=== PATIENT | female | born 1950 | race Caucasian/White ===

== ENCOUNTER 2017-11-16 20:25 | Emergency (ER) | payer MEDICARE, BC ==
--- NOTE | 2017-11-16 20:49 | EDM.PDOC ---
ED HPI GENERAL MEDICAL PROBLEM - General Chief Complaint: Respiratory Problem Stated Complaint: Coughing, fever, SOB Time Seen by Provider: 11/16/17 20:40 Source of Information: Reports: Patient, Family (Daughter). Denies: Old Records (No [facility] records available) History Limitations: Reports: No Limitations - History of Present Illness INITIAL COMMENTS - FREE TEXT/NARRATIVE: The patient was brought to the emergency room via private automobile by her daughter for evaluation of a 2 day history of progressive mostly clear nasal drainage and nonproductive cough with possible very occasional wheezing with symptoms worsening since yesterday evening. She did receive an influenza booster this past season and has had a Pneumovax. She denies any known exposure to infection. History of fever and chills with last Tylenol dose of 1000 mg at 14:30 hours this afternoon. She did have a temperature of 101.5 immediately prior to arrival. He does have some mild pleuritic type symptoms with coughing. The patient denies any other chest pain/pressure, heart flutter, dizziness, orthostasis, orthopnea, diaphoresis, paresthesias, recent decreased exercise tolerance, or any other anginal-type symptoms. No recent history of abdominal pain, heartburn, nausea, diarrhea, melena, gross hematochezia, or any food intolerance, including fatty foods, etc.. Onset: Gradual Onset Date: 11/14/17 Duration: Getting Worse Location: Reports: Chest (Pleurisy). Denies: Head, Face, Neck, Abdomen, Back, Upper Extremity, Left, Upper Extremity, Right, Radiates to Quality: Reports: Sharp Severity: Moderate Improves with: Reports: Rest Worsens with: Reports: Movement (Coughing) Context: Reports: Other (As above) Associated Symptoms: Reports: Chest Pain, Cough, Fever/Chills. Denies: Confusion, cough w sputum, Diaphoresis, Headaches, Loss of Appetite, Malaise, Nausea/Vomiting, Shortness of Breath, Syncope, Weakness Treatments FIELD TECHNICAL SUPPORT CONSULTANT: Reports: Acetaminophen Bilateral Thoracic Pain Score (Numeric/FACES): 6 - Related Data Allergies Allergy/AdvReac Type Severity Reaction Status Date / Time No Known Allergies Allergy Verified 11/16/17 20:32 Home Meds: Home Meds Venlafaxine HCl [Venlafaxine ER] 75 mg PO DAILY 11/16/17 [History] guaiFENesin/Dextromethorphan [Mucinex Dm ER 600-30 mg Tablet] 1 each PO BID #20 tab.er.12h 11/16/17 [Rx] traZODone HCl [Trazodone HCl] 50 mg PO BEDTIME 11/16/17 [History] Past Medical History HEENT History: Reports: Impaired Vision, Other (See Below). Denies: Allergic Rhinitis, Cataract, Glaucoma, Hard of Hearing, Macular Degeneration, Retinal Detachment Other HEENT History: Patient wears glasses Cardiovascular History: Reports: High Cholesterol. Denies: Afib, Aneurysm, Arrhythmia, Blood Clots/VTE/DVT, CAD, Heart Failure, Heart Murmur, Hypertension , [place], Syncope Respiratory History: Reports: Bronchitis, Recurrent, Intubation, Previous, Pneumonia, Recurrent. Denies: Asthma, COPD, Intubation, Difficult, PE, Pneumothorax, Sleep Apnea Gastrointestinal History: Reports: Chronic Constipation, Colon Polyp, GERD, Irritable Bowel Syndrome, Other (See Below). Denies: Celiac Disease, Cholelithiasis, Chronic Diarrhea, Diverticulosis, Fecal Incontinence, GI Bleed, Hepatitis, Inflammatory Bowel Disease, Jaundice, Pancreatitis, PUD Other Gastrointestinal History: Achalasia. History of unknown type of gastric polyps Genitourinary History: Reports: None. Denies: Acute Renal Failure, Chronic Renal Insuffiency, Renal Calculus, STD, Urinary Incontinence, UTI, Recurrent [employer] History: Reports: Dysfunctional Uterine Bleeding, Fibroids, . Denies: Endometriosis, Polycystic Ovaries : 5 Para: 5 LMP (Approximate): Other (See Below) Other OB/BYN History: Deliveries by C-sections secondary to narrow pelvis with no history of other complications during pregnancies or deliveries. Surgical Menopause at age 46 Musculoskeletal History: Reports: Arthritis, Fracture, Osteoarthritis, Osteoporosis, Other (See Below). Denies: Amputation, Back Pain, Chronic, Gout, Neck Pain, Chronic, RA, SLE Other Musculoskeletal History: Right Elbow fracture in about 2007. Fifth metatarsal fracture of the right foot in the Neurological History: Reports: Headaches, Chronic, Migraines, Other (See Below) . Denies: Cerebral Aneurysms, Concussion, CVA, Head Trauma, MS, Neuropathy, Peripheral, Parkinson's, Seizure, TIA Other Neuro History: Migraines currently nonproblematic Psychiatric History: Reports: Anxiety, Depression. Denies: Abuse, Victim of, ADD, ADHD, Addiction, Psych Hospitalization(s), PTSD, Suicide Attempt, Suicidal Ideation Endocrine/Metabolic History: Reports: None, Osteopenia, Osteoporosis. Denies: Diabetes, Gestational, Diabetes, Type I, Diabetes, Type II, Diabetes Mellitus, Type 3c, Hypothyroidism, IDDM Hematologic History: Reports: Anemia, Iron Deficiency, Other (See Below). 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 Denies: AIDS, HIV, SLE Oncologic (Cancer) History: Reports: None. Denies: Basal Cell Carcinoma, Breast , Cervix, Colon, Hodgkin's Lymphoma, Leukemia, Malignant Melanoma, Non-Hodgkin' s Lymphoma, Ovarian, Squamous Cell Carcinoma, Uterine Dermatologic History: Reports: None. 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 Left lateral cervical and periauricular shingles in the ). Denies: C -Difficile, Measles, Meningitis, Mononucleosis, MRSA, Mumps, Pertussis ( Whooping Cough), Rheumatic Fever, Rubella, Scarlet Fever, TB, VRE - Past Surgical History Head Surgeries/Procedures: Reports: None HEENT Surgical History: Reports: Naso-Sinus Surgery, Oral Surgery, Other (See Below). Denies: Adenoidectomy, Cataract Surgery, Eye Surgery, Laser Surgery, LASIK, Myringotomy w Tube(s), Tonsillectomy Other HEENT Surgeries/Procedures: Nasal deviation repair and concomitant sinus surgery for benign mass removal in about 2012 with subsequent repeat nasal deviation repair 6 months later. [place] teeth extraction 4 at about age 26 Cardiovascular Surgical History: Reports: None. Denies: Varicose, Vascular Surgery Respiratory Surgical History: Reports: None. Denies: Thoracentesis GI Surgical History: Reports: Appendectomy, Colonoscopy, EGD, Other (See Below) . Denies: Cholecystectomy, Hernia, Abdominal, Hernia, Inguinal, Hernia Repair/ Other Other GI Surgeries/Procedures: Appendectomy in 1974 concomitant with a C- section. Last colonoscopy in about 2015. Last EGD in 2017. Female Surgical History: Reports: Section, Hysterectomy, Salpingo- Oophorectomy, Other (See Below). Denies: Breast Biopsy, Tubal Ligation Other Female Surgeries/Procedures: Total hysterectomy with concomitant bilateral salpingo-oophorectomy at age 46 secondary to dysfunctional uterine bleeding Endocrine Surgical History: Reports: None. Denies: Thyroid Biopsy Neurological Surgical History: Reports: None. Denies: C-Spine, Discectomy, Laminectomy, Lumbar Spine, Sacral Spine, Spinal Fusion, Vertebroplasty Musculoskeletal Surgical History: Reports: ORIF, Other (See Below). Denies: Amputation, Carpal Tunnel, Ganglion Cyst, Joint Replacement, Shoulder Surgery Other Musculoskeletal Surgeries/Procedures:: ORIF of left elbow fracture in 2007 Oncologic Surgical History: Reports: None. Denies: Biopsy of Breast Dermatological Surgical History: Reports: None Social & Family History - Tobacco Use Smoking Status *Q: Never Smoker Tobacco Use Within Last Twelve Months: No Used Tobacco, but Quit: No Smoking Cessation Information Provided To Patient: No Second Hand Smoke Exposure: No Second Hand Smoke Education Provided: No - Living Situation & Occupation Living situation: Reports: (2015, 5 children), Alone Occupation: Retired ([employer]ired [employer] ) ED ROS GENERAL - Review of Systems Review Of Systems: ROS reveals no pertinent complaints other than HPI. ED EXAM, GENERAL - Physical Exam Exam: See Below Exam Limited By: No Limitations General Appearance: Alert, WD/WN, No Apparent Distress Eye Exam: Bilateral Eye: EOMI, Normal Inspection (No nystagmus. Patient wearing glasses), PERRL Ears: Normal External Exam, Normal Canal, Hearing Grossly Normal, Normal TMs Nose: Normal Mucosa, No Blood, Clear Rhinorrhea Throat/Mouth: Normal Lips, Normal Teeth, Normal Gums, Normal Oropharynx (Trace erythema in the posterior pharynx), Normal Voice, No Airway Compromise. No: Dysphagia, Inflammation, Perioral Cyanosis Head: Atraumatic, Normocephalic. No: Facial Swelling, Facial Tenderness, Sinus Tenderness Neck: Normal Inspection, Supple, Non-Tender, Full Range of Motion. No: Carotid Bruit, Lymphadenopathy (L), Lymphadenopathy (R), Thyromegaly Respiratory/Chest: No Respiratory Distress, Lungs Clear, Normal Breath Sounds, No Accessory Muscle Use, Chest Non-Tender. No: Rhonchi, Wheezing, Pleural Rub, Retractions Cardiovascular: Normal Peripheral Pulses, Regular Rate, Rhythm, No Edema, No Gallop, No JVD, No Murmur, No Rub. No: Gallop/S3, Gallop/S4, Friction Rub Peripheral Pulses: 2+: Radial (L), Radial (R) GI/Abdominal: Normal Bowel Sounds, Soft, Non-Tender, No Organomegaly, No Distention, No Abnormal Bruit, No Mass. No: Guarding (Female) Exam: Deferred Rectal (Female) Exam: Deferred Back Exam: Normal Inspection, Full Range of Motion. No: CVA Tenderness (L), CVA Tenderness (R), Muscle Spasm Extremities: Normal Inspection, Normal Range of Motion, Non-Tender, No Pedal Edema, Normal Capillary Refill. No: Candelaria's Sign Neurological: Alert, Oriented, CN II-XII Intact, Normal Cognition, Normal Gait, No Motor/Sensory Deficits Psychiatric: Anxious (Mild). No: Depressed Mood Skin Exam: Warm, Dry, Intact, Normal Color, No Rash. No: Diaphoretic, Ecchymosis, Petechiae, Wound/Incision Lymphatic: No Adenopathy Course - Vital Signs Last Recorded V/S: Last Vital Signs Temp 37.4 C 11/16/17 20:44 Pulse 102 H 11/16/17 20:44 Resp 22 H 11/16/17 20:44 BP 164/97 H 11/16/17 20:44 Pulse Ox 98 11/16/17 20:44 Vital Signs - 24 hr 11/16/17 11/16/17 11/16/17 20:41 20:44 21:20 Temperature [ 37.4 C 37.4 C Temporal] Pulse, 102 H 102 H Peripheral [ Pulse Oximetry] Respiratory 22 H 22 H Rate Blood Pressure 164/97 H 164/97 H 145/79 H [Right Upper Arm] O2 Sat by Pulse 98 98 Oximetry - Orders/Labs/Meds Orders: Active Orders 24 hr Category Date Time Status CULTURE STREP A CONFIRMATION [] Stat Lab 11/16/17 20:40 Results STREP SCRN A RAPID W CULT CONF [] Stat Lab 11/16/17 20:40 Results Obtain Past Medical Record [OM.PC] Routine Oth 11/16/17 20:49 Active Labs: Microbiology 11/16/17 20:40 Group A Streptococcus Rapid Screen - Final Throat NEGATIVE STREP A SCREEN 11/16/17 20:40 Influenza Type A Antigen Screen - Final Nasal, Left Positive Influenza A Ag Influenza Type B Antigen Screen - Final NEGATIVE INFLUENZA B VIRUS AG Meds: None - Radiology Interpretation Free Text/Narrative:: None Departure - Departure Time of Disposition: 21:30 Disposition: Home, Self-Care 01 Condition: Good Clinical Impression: Influenza, Pleurisy, Achalasia, Mixed anxiety depressive disorder, Elevated blood pressure reading Osteoarthritis Qualifiers: Osteoarthritis location: multiple joints Osteoarthritis type: primary Qualified Code(s): M15.0 - Primary generalized (osteo)arthritis - Discharge Information Prescriptions: guaiFENesin/Dextromethorphan [Mucinex Dm ER 600-30 mg Tablet] 1 each PO BID #20 tab.er.12h Instructions: Influenza, Adult, [id number], Pleurisy, [id number] Forms: ED Department Discharge Additional Instructions: 1. Follow up with your regular provider in 10-14 days as needed, if symptoms persist. 2. Tylenol 650 mg by mouth every 4 hours and/or OTC ibuprofen 2-3 tabs by mouth every 6 hours with food as directed./needed. 3. Listerine gargles four times per day, after meals and at bedtime, with additional Chloroseptic lozenges or spray as needed for 10 days and/or until symptoms resolve. 4. Hygiene precautions as discussed 5. Encourage oral fluids as discussed 6. Continue to have your regular provider watch her blood pressure and pulse closely, including blood pressure and pulse check in about 2 weeks - Problem List & Annotations (1) Influenza SNOMED Code(s): 9560791 Code(s): J11.1 - FLU DUE TO UNIDENTIFIED INFLUENZA VIRUS W OTH RESP MANIFEST Status: Acute Priority: High Current Visit: Yes Onset Date: ~11/14/17 Annotation/Comment:: She does not wish to have Tamiflu. Hygiene, etc. precautions discussed. URI symptoms with additional probable viral pharyngitis. Symptomatic relief as per discharge instructions. Family members are to get influenza boosters, if they have not already done so. (2) Pleurisy SNOMED Code(s): 764609532 Code(s): R09.1 - PLEURISY Status: Acute Priority: High Current Visit: Yes Onset Date: ~11/16/17 Annotation/Comment:: Ibuprofen to be used with discretion secondary to her history of achalasia. This should also be taken with food as discussed. (3) Osteoarthritis SNOMED Code(s): 909604344 Code(s): M19.90 - UNSPECIFIED OSTEOARTHRITIS, UNSPECIFIED SITE Status: Chronic Priority: Medium Current Visit: Yes Annotation/Comment:: Stable by history Qualifiers: Osteoarthritis location: multiple joints Osteoarthritis type: primary Qualified Code(s): M15.0 - Primary generalized (osteo)arthritis (4) Achalasia SNOMED Code(s): 83617857 Code(s): K22.0 - ACHALASIA OF CARDIA Status: Chronic Priority: Medium Current Visit: Yes Annotation/Comment:: Stable by history (5) Mixed anxiety depressive disorder SNOMED Code(s): 488413156 Code(s): F41.8 - OTHER SPECIFIED ANXIETY DISORDERS Status: Chronic Priority: Medium Current Visit: Yes Annotation/Comment:: Stable by history with mild anxious affect during today's visit. Continue to observe closely by regular providers (6) Elevated blood pressure reading SNOMED Code(s): 24057827 Code(s): R03.0 - ELEVATED BLOOD-PRESSURE READING, W/O DIAGNOSIS OF HTN Status: Acute Priority: Medium Current Visit: Yes Onset Date: 11/16/17 Annotation/Comment:: No previous history of hypertension. Anxiety component likely today. Continue to observe closely by regular provider. - My Orders Last 24 Hours: My Active Orders 11/16/17 20:40 CULTURE STREP A CONFIRMATION [RM] Stat STREP SCRN A RAPID W CULT CONF [RM] Stat 11/16/17 20:49 Obtain Past Medical Record [OM.PC] Routine - Assessment/Plan Last 24 Hours: My Active Orders 11/16/17 20:40 CULTURE STREP A CONFIRMATION [RM] Stat STREP SCRN A RAPID W CULT CONF [RM] Stat 11/16/17 20:49 Obtain Past Medical Record [OM.PC] Routine Assessment:: As above Plan: As above. Extensive precautions were given to the patient and her daughter, who are in agreement with the treatment plan. See Patient Instructions for further treatment and plan.
== END 2017-11-16 21:30 | disposition home or self-care (01) ==
LOC: LL.ED 20:25
DX: J11.1 Influenza due to unidentified influenza virus with other respiratory manifestations (principal); K22.0 Achalasia of cardia; E78.00 Pure hypercholesterolemia, unspecified; I13.0 Hypertensive heart and chronic kidney disease with heart failure and stage 1 through stage 4 chronic kidney disease, or unspecified chronic kidney disease; I50.9 Heart failure, unspecified; M15.0 Primary generalized (osteo)arthritis; N18.9 Chronic kidney disease, unspecified; F32.9 Major depressive disorder, single episode, unspecified; F41.8 Other specified anxiety disorders; F41.9 Anxiety disorder, unspecified; Z79.899 Other long term (current) drug therapy; Z87.440 Personal history of urinary (tract) infections; Z98.890 Other specified postprocedural states
CPT/HCPCS: 87081; 87430; 87804; 99283